=== PATIENT | male | born 1950 | race Caucasian/White ===

== ENCOUNTER 2016-10-11 08:04 | Day surgery (SDC) | payer MEDICARE, BC ==
[~2016-10-11 08:04] MED LIST: Lactated Ringers 1,000 ML IV SCH; Lidocaine 1%/Sod Bicarbonate in NS 8.4% 1 ML Syringe IV PRN; Sodium Chloride 0.9% 10 ML Syringe FLUSH PRN
[2016-10-11] MEDS ORDERED: Bupivacaine 0.25% 30 ML SDV ONE (09:49)
[2016-10-11] MEDS ORDERED: Lidocaine 1% 30 ML SDV ONE (09:49)
--- NOTE | 2016-10-11 10:22 | PCM.PREANE ---
Preanesthetic Assessment - Procedure Proposed Procedure: Carpal tunnel release, right - Anesthesia/Transfusion/Family Hx Anesthesia History: Prior Anesthesia Without Reaction Family History of Anesthesia Reaction: No - Review of Systems General: No Symptoms Pulmonary: No Symptoms Cardiovascular: No Symptoms Gastrointestinal: No symptoms Neurological: Weakness (right shoulder due to severe rotator cuff injury) Other: Reports: Easy Bruising (pt states this began when he started ASA 81 mg/ day) - Physical Assessment NPO Status Date: 10/10/16 NPO Status Time: 21:00 O2 Sat by Pulse Oximetry: 97 Respiratory Rate: 16 Vital Signs: Last Vital Signs Temp 36.7 C 10/11/16 08:10 Pulse 61 10/11/16 08:10 Resp 16 10/11/16 08:10 BP 129/95 H 10/11/16 08:10 Pulse Ox 97 10/11/16 08:10 Height: 1.73 m Weight: 80.739 kg ASA Class: 2 Mental Status: Alert & Oriented x3 Airway Class: Mallampati = 1 Dentition: Reports: Bridge ( 3 perm bridges) Thyro-Mental Finger Breadths: 3 Mouth Opening Finger Breadths: 3 ROM/Head Extension: Full Lungs: Clear to auscultation, Normal respiratory effort Cardiovascular: Regular Rate, Regular Rhythm, No Murmurs - Lab Values: CBC and CMP from [facility] 09/24/16 essentially normal - Imaging/EKG Impressions: EKG from [facility] with sinus rhythm and multifocal PVCs - Allergies Allergies/Adverse Reactions: Allergies Allergy/AdvReac Type Severity Reaction Status Date / Time No Known Allergies Allergy Verified 10/11/16 08:43 - Blood Blood Available: No - Acknowledgements Anesthesia Type Planned: MAC Pt an Appropriate Candidate for the Planned Anesthesia: Yes Alternatives and Risks of Anesthesia Discussed w Pt/Guardian: Yes Pt/Guardian Understands and Agrees with Anesthesia Plan: Yes PreAnesthesia Questionnaire HEENT History: Reports: None Cardiovascular History: Reports: High Cholesterol, Other (See Below) Other Cardiovascular History: PVCs Respiratory History: Reports: None Genitourinary History: Reports: Other (See Below) Other Genitourinary History: hyperuricemia 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 Musculoskeletal History: Reports: Osteoarthritis, Other (See Below) Other Musculoskeletal History: R wrist carpal tunnel, R rotator cuff tear, R knee pain/swelling Neurological History: Reports: None Psychiatric History: Reports: None Endocrine/Metabolic History: Reports: None Hematologic History: Reports: None Immunologic History: Reports: None Oncologic (Cancer) History: Reports: None Dermatologic History: Reports: Other (See Below) Other Dermatologic History: onychomycosis - Past Surgical History Head Surgeries/Procedures: Reports: None HEENT Surgical History: Reports: None Respiratory Surgical History: Reports: None GI Surgical History: Reports: Colonoscopy - SUBSTANCE USE Smoking Status *Q: Former Smoker (Quit 1974 after 3 yrs of 1/2 ppd) Tobacco Use Within Last Twelve Months: No Second Hand Smoke Exposure: No Days Per Week of Alcohol Use: 7 (Pt counseled that this is too much alcohol consumption for good health, and that he should cut back to 1-2 drinks per day) Number of Drinks Per Day: 5 Total Drinks Per Week: 35 Date of Last Drink: 10/10/16 Recreational Drug Use History: No - HOME MEDS Home Medications: Home Meds atorvaSTATin [Lipitor] 40 mg PO DAILY 10/10/16 [History] Acetaminophen/HYDROcodone [[place] 325-5 MG] 1 - 2 tab PO Q6H PRN #10 tablet 10/11 [Rx] - CURRENT (IN HOUSE) MEDS Current Meds: Current Medications Lactated Ringer's (Ringers, Lactated) 1,000 mls @ 125 mls/hr IV ASDIRECTED ИРИНА Stop: 10/11/16 23:00 Last Admin: 10/11/16 08:25 Dose: 125 mls/hr Lidocaine/Sodium Bicarbonate (Buffered Lidocaine 1% In Ns 8.4%) 0.25 ml IV ONETIME PRN PRN Reason: Prior to IV Start Stop: 10/11/16 18:00 Last Admin: 10/11/16 08:24 Dose: 0.25 ml Sodium Chloride (Saline Flush) 10 ml FLUSH ASDIRECTED PRN PRN Reason: Keep Vein Open Stop: 10/11/16 18:00 Discontinued Medications Bupivacaine HCl (Marcaine 0.25%) Confirm Administered Dose 30 ml .ROUTE .STK- MED ONE Stop: 10/11/16 09:50 Lidocaine HCl (Xylocaine-Mpf 1%) Confirm Administered Dose 30 ml .ROUTE .STK- MED ONE Stop: 10/11/16 09:50
[2016-10-11] MEDS ORDERED: Midazolam 1 MG/ML 2 ML SDV ONE (10:42)
[2016-10-11] MEDS ORDERED: Lidocaine 1% 4 ML ONE (10:42)
[2016-10-11] MEDS ORDERED: fentaNYL 100 MCG/2 ML SDV ONE (10:42)
[2016-10-11] MEDS ORDERED: Propofol 200 MG/20 ML SDV ONE (10:42)
[2016-10-11 11:51] VITALS: BP 122/84
--- NOTE | 2016-10-11 22:35 | PCM.OPNOTE ---
- General Post-Op/Procedure Note Date of Surgery/Procedure: 10/11/16 Operative Procedure(s): right carpal tunnel release Pre Op Diagnosis: right median nerve compression neuropathy Post-Op Diagnosis: Same Anesthesia Technique: Local, MAC Primary Surgeon: Brian Moy Anesthesia Provider: Benjamin Bhakta Commercial Manager: Marva Mahoney EBL in mLs: 5 Complications: None Condition: Good Free Text/Narrative:: Intake & Output 10/11/16 10/11/16 10/11/16 06:59 14:59 22:59 Intake Total 200 Balance 200
--- NOTE | 2016-10-11 23:09 | OR ---
DATE OF OPERATION: 10/11/2016 SURGEON: Brian Moy MD OPERATIVE PROCEDURE: Right carpal tunnel release. PREOPERATIVE DIAGNOSIS: Right median nerve compression neuropathy. POSTOPERATIVE DIAGNOSIS: Right median nerve compression neuropathy. ANESTHESIA: Local MAC. ANESTHESIA PROVIDER: Benjamin Bhakta CRNA CERTIFIED PATHOLOGY ASSISTANT: Marva Mahoney PA-C. ESTIMATED BLOOD LOSS: 5 mL. COMPLICATIONS: None. CONDITION: Stable . DESCRIPTION OF PROCEDURE: The patient was identified in the preop holding area, proper site was marked and identified by the surgeon. The patient was taken back to the operating theater where after adequate anesthesia, the patient's right upper extremity was sterilely prepped and draped in the usual sterile fashion. OR time-out was performed. The patient has not received antibiotics, not indicated for soft tissue hand procedure. At this time, 0.25% Marcaine without epinephrine and 1% lidocaine without epinephrine was used to anesthetize the palmar cutaneous branch of the median nerve, roughly 10 cm proximal to the incision as well as around the incisional site using [place] cardinal line and ulnar border of the fourth digit. Esmarch was then used on the forearm for a tourniquet and the skin was tested, then incision was made. This was taken down to the palmar cutaneous fascia. Palmar cutaneous fascia was then incised with a [place] blade. A small rent was made in the transverse carpal ligament. A [place] elevator was then placed underneath the transverse carpal ligament distally and a [place] blade was used for release of the transverse carpal ligament all the way down to the palmar arch. This was found to be adequate release distally. At this time, attention was turned proximally. The superficial forearm fascia as well as transverse carpal ligament were then resected using a tenotomy scissors under direct visualization making sure to protect the palmar cutaneous branch of the median nerve. At this time, it was found to be with adequate release both proximally and distally. Adequate saline was irrigated through the wound. 4-0 nylon simple suture was used for closure of the skin. Sterile soft dressing was applied. The patient tolerated the procedure well and sent to PACU in stable condition. OPERATION PERFORMED: MMODAL /[id number]
== END 2016-10-11 12:01 | disposition home or self-care (01) ==
LOC: JD.SDS 08:04
PROVIDERS: ATTEND Orthopaedic Surgery
PROC: 01N50ZZ Release Median Nerve, Open Approach (ICD-10-PCS; principal; 2016-10-11)
DX: G56.01 Carpal tunnel syndrome, right upper limb (principal); E78.2 Mixed hyperlipidemia; E79.0 Hyperuricemia without signs of inflammatory arthritis and tophaceous disease; I25.10 Atherosclerotic heart disease of native coronary artery without angina pectoris; M15.9 Polyosteoarthritis, unspecified; E78.00 Pure hypercholesterolemia, unspecified; Z87.891 Personal history of nicotine dependence; Z79.899 Other long term (current) drug therapy; Z98.890 Other specified postprocedural states
CPT/HCPCS: 64721; J2250; J3010; J7120; 01810; J2704; J3490

== ENCOUNTER 2016-10-20 11:23 | Emergency (ER) | payer MEDICARE, BC ==
--- NOTE | 2016-10-20 12:01 | EDM.PDOC ---
ED HPI GENERAL MEDICAL PROBLEM - General Chief Complaint: Upper Extremity Injury/Pain Stated Complaint: INFECTION INCISION Time Seen by Provider: 10/20/16 11:56 Source of Information: Reports: Patient History Limitations: Reports: No Limitations - History of Present Illness INITIAL COMMENTS - FREE TEXT/NARRATIVE: 66-year-old male presents for evaluation and treatment of swelling and redness to his surgical incision. Patient had a right carpal tunnel release done by Dr. Moy on 10-11-16. He states that the surgery was uneventful. He was MRSA negative prior surgery. Reports having no problems with the wound and has been following his care instructions as directed. He states this morning he woke up and he noticed increased swelling to the surrounding area, erythema and a streak up the right arm. He also appreciated clear drainage from the wound. He denies any pain, decreased range of motion, fevers, chills, nausea or vomiting. He is not a diabetic and has no known immunosuppressive conditions. 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 - Related Data Allergies Allergy/AdvReac Type Severity Reaction Status Date / Time No Known Allergies Allergy Verified 10/11/16 08:43 Home Meds: Home Meds atorvaSTATin [Lipitor] 40 mg PO DAILY 10/10/16 [History] Acetaminophen/HYDROcodone [[place] 325-5 MG] 1 - 2 tab PO Q6H PRN #10 tablet 10/11 [Rx] Doxycycline [Vibramycin] 100 mg PO BID #20 cap 10/20/16 [Rx] Pravastatin [Pravachol] 80 mg PO DAILY 10/20/16 [History] Past Medical History HEENT History: Reports: None Cardiovascular History: Reports: High Cholesterol, Other (See Below) Other Cardiovascular History: PVCs Respiratory History: Reports: None Genitourinary History: Reports: Other (See Below) Other Genitourinary History: hyperuricemia 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 Musculoskeletal History: Reports: Osteoarthritis, Other (See Below) Other Musculoskeletal History: R wrist carpal tunnel, R rotator cuff tear, R knee pain/swelling Neurological History: Reports: None Psychiatric History: Reports: None Endocrine/Metabolic History: Reports: None Hematologic History: Reports: None Immunologic History: Reports: None Oncologic (Cancer) History: Reports: None Dermatologic History: Reports: Other (See Below) Other Dermatologic History: onychomycosis - Past Surgical History Head Surgeries/Procedures: Reports: None HEENT Surgical History: Reports: None Respiratory Surgical History: Reports: None GI Surgical History: Reports: Colonoscopy Social & Family History - Tobacco Use Smoking Status *Q: Former Smoker Used Tobacco, but Quit: Yes Month Tobacco Last Used: 40 yrs Second Hand Smoke Exposure: No - Caffeine Use Caffeine Use: Reports: Coffee - Alcohol Use Days Per Week of Alcohol Use: 7 (Pt counseled that this is too much alcohol consumption for good health, and that he should cut back to 1-2 drinks per day) Number of Drinks Per Day: 5 Total Drinks Per Week: 35 - Recreational Drug Use Recreational Drug Use: No Drug Use in Last 12 Months: No Review of Systems - Review of Systems Review Of Systems: See Below Constitutional: Denies: Chills, Fever GI/Abdominal: Denies: Nausea, Vomiting Musculoskeletal: Denies: Hand Pain Skin: Reports: Erythema (surrounding the wound and a streak up the arm), Wound ( healing surgical wound to the right ventral hand from recent carpal tunnel release) ED EXAM, GENERAL - Physical Exam Exam: See Below Exam Limited By: No Limitations General Appearance: Alert, WD/WN, No Apparent Distress Respiratory/Chest: No Respiratory Distress Cardiovascular: Normal Peripheral Pulses, Regular Rate, Rhythm Peripheral Pulses: 2+: Radial (L), Radial (R) Neurological: Alert, Oriented, Normal Cognition Psychiatric: Normal Affect, Normal Mood Skin Exam: Warm, Dry, Erythema (approximately 11cm x 8cm area of erythema surrounding the surgical incision with associated swelling; 19cm erythematous streak from the wound along the anterior right forarm ; no obvious drainage from the surgical incision; surgical incision is well approximated), Increased Warmth Course - Vital Signs Last Recorded V/S: Last Vital Signs Temp 37.1 C 10/20/16 11:31 Pulse 71 10/20/16 11:31 Resp 20 10/20/16 11:31 BP 123/81 10/20/16 11:31 Pulse Ox 95 10/20/16 11:31 - Re-Assessments/Exams Free Text/Narrative Re-Assessment/Exam: 10/20/16 11:55 cellulites outlined. Will start doxycycline. Has follow-up with Dr. Moy on Saturday. Will discharge at this time. Discharge instructions as documented. Departure - Departure Time of Disposition: 12:00 Disposition: Home, Self-Care 01 Condition: Fair Clinical Impression: Cellulitis - Discharge Information Prescriptions: Doxycycline [Vibramycin] 100 mg PO BID #20 cap Referrals: Brian Moy MD [Primary Care Provider] - Forms: ED Department Discharge Additional Instructions: Continue to follow your current care instructions provided by Dr. Moy. Doxycycline 1 tab twice a day for 10 days. This is an antibiotic. I recommend you take this with some food. This antibiotic can cause photosensitivity. Ensure you apply sunscreen or avoid sunlight while on this antibiotic. Follow-up with Dr. Coker on Saturday as planned. Please return to the ER immediately if your symptoms change or worsen. In particularly we would like to see you for high fevers, rigors, chills, nausea and vomiting.
== END 2016-10-20 12:14 | disposition home or self-care (01) ==
LOC: JD.ED 11:23
CPT/HCPCS: 99283